=== PATIENT | male | born 1955 | race American Indian/Alaskan Native ===

== ENCOUNTER 2019-07-05 02:35 | Emergency (ER) | payer SELFPAY ==
[2019-07-05] MEDS ORDERED: PHENYLEPHRINE 1 MG, SODIUM CHLORIDE P/F VIAL 10 ML 9.9 ML IJ**NOT IV ONE (02:46)
--- NOTE | 2019-07-05 03:00 | Emergency Department Report ---
HPI - General Chief Complaint: Urogenital-Male Time Seen by Provider: 07/05/19 02:46 - HPI HPI: Room 1 The patient is a 64-year-old male presenting with a chief complaint priapism. The patient states he injected himself withpap/phen/pge (30mg/2mg/20mcg) this evening at 20:30. Patient states she's had an erection since. Patient has not taken any other medication Location: [See above] Duration: [See above] Quality: [See above] Severity: [See above] Timing: [See above] Context: [See above] Modifying factors: [See above] Associated signs and symptoms: [see above] ED Past Medical Hx - Past Medical History Previous Medical History?: No Hx of Cancer: Yes (prostate CA s/p surgery) - Surgical History Past Surgical History?: Yes Additional Surgical History: prostate - Family History Family history: no significant - Social History Smoking Status: Current Every Day Smoker (1/3 pack per day) Substance Use Type: None (denies illicit drug use) - Medications Home Medications: Home Medications Medication Instructions Recorded Confirmed Last Taken Type HYDROcodone/APAP 5-325 [[place] 1 - 2 each PO Q6HR PRN #10 tablet 07/05/19 Unknown Rx 5/325] Ibuprofen [Motrin 800 MG tab] 800 mg PO Q8HR PRN #20 tablet 07/05/19 Unknown Rx ED Review of Systems ROS: Stated complaint: POSS REACTION TO MEDICATION Other details as noted in HPI Constitutional: no symptoms reported Eyes: denies: eye pain ENT: denies: throat pain Respiratory: no symptoms reported Cardiovascular: denies: chest pain Endocrine: no symptoms reported Gastrointestinal: denies: abdominal pain Genitourinary: other (priapism) Musculoskeletal: denies: back pain Neurological: denies: headache Physical Exam - Physical Exam Vital Signs: Vital Signs 07/05/19 02:38 Temperature 98.1 F Pulse Rate 76 Respiratory 18 Rate Blood Pressure 150/93 O2 Sat by Pulse 98 Oximetry Physical Exam: GENERAL: The patient is well-developed well-nourished male sitting in a stret zac not appearing to be in acute distress HEENT: Normocephalic. Atraumatic. Extraocular motions are intact. Patient has moist mucous membranes. NECK: Supple. Trachea midline CHEST/LUNGS: Clear to auscultation. There is no respiratory distress noted. HEART/CARDIOVASCULAR: Regular. There is no tachycardia. There is no gallop rub or murmur. SKIN: There is no rash. There is no edema. There is no diaphoresis. NEURO: The patient is awake, alert, and oriented. The patient is cooperative. The patient has normal speech MUSCULOSKELETAL: There is no evidence of acute injury. ED Course Vital Signs 07/05/19 02:38 Temperature 98.1 F Pulse Rate 76 Respiratory 18 Rate Blood Pressure 150/93 O2 Sat by Pulse 98 Oximetry - Penile Procedure Consent Obtained: verbal consent Time Out Performed: Yes Indication: priapism management Procedural Sedation: No Sedation/Analgesia: none Local Anesthesia Used: Bupivicaine 0.25% Amount of Anesthesia Used (mls): 6 (piperocaine 0.25% mixed with lidocaine 1% plain in 1:1 ratio) Priapism Management: aspiration, phenylephrine injection (total 300 g phenylephrine use (1003)) Complications: none Patient Tolerated Procedure: well, no complications Additional Comments: Approximately 26 ml's blood aspirated ED Medical Decision Making - Differential Diagnosis priapism Critical care attestation.: If time is entered above; I have spent that time in minutes in the direct care of this critically ill patient, excluding procedure time. ED Disposition Clinical Impression: Priapism Disposition: DC- TO HOME OR SELFCARE Is pt being admited?: No Does the pt Need Aspirin: No Condition: Stable Instructions: Priapism (ED) Additional Instructions: Return to the emergency department should you develop worsening symptoms, inability to tolerate food or liquids, high fever or any other concerns Prescriptions: Ibuprofen [Motrin 800 MG tab] 800 mg PO Q8HR PRN #20 tablet PRN Reason: Pain, Moderate (4-6) HYDROcodone/APAP 5-325 [[place] 5/325] 1 - 2 each PO Q6HR PRN #10 tablet PRN Reason: Pain Referrals: your, urologist [Other] - 3-5 Days GOMEZ VINSON MD [Staff Physician] - 3-5 Days Time of Disposition: 03:52
[2019-07-05] MEDS ORDERED: LIDOCAINE (2%) 20 MG/1 ML VIAL 20 ML MDV INFILTRATI ONE (03:13)
[2019-07-05 03:14] VITALS: BP 153/88
[2019-07-05] MEDS ORDERED: BUPIVACAINE/PF (0.25%) 2.5 MG/ML 10 ML VIAL INFILTRATI ONE (03:14)
[2019-07-05] MEDS ORDERED: LIDOCAINE (1%) 10 MG/1 ML VIAL 20 ML MDV ONE (03:15)
[2019-07-05] MEDS ORDERED: LIDOCAINE (1%) 10 MG/1 ML VIAL 20 ML MDV INFILTRATI ONE (03:18)
[2019-07-05] MEDS ORDERED: BUPIVACAINE/PF (0.25%) 2.5 MG/ML 30 ML VIAL INFILTRATI ONE (03:18)
== END 2019-07-05 04:30 | disposition home or self-care (01) ==
LOC: ED 02:35
DX: N48.30 Priapism, unspecified (principal); Z88.0 Allergy status to penicillin
CPT/HCPCS: 54220; 99283; J2370

== ENCOUNTER 2019-11-27 10:22 | Emergency (ER) | payer SELFPAY ==
[2019-11-27 10:33] VITALS: BP 151/88
[2019-11-27 10:56] LABS: Bilirubin,Urine NEG (Negative); Blood,Urine NEG (Negative); Color,Urine Yellow (Yellow); Mucus,Urine FEW /HPF; Protein,Urine <15 mg/dL mg/dL (Negative); Urobilinogen,Urine < 2.0 mg/dL (<2.0)
--- NOTE | 2019-11-27 11:46 | Emergency Department Report ---
ED Male HPI - General Chief complaint: Urogenital-Male Stated complaint: BLOOD IN URINE,STOMACH PAIN, TINGLING IN HANDS Time Seen by Provider: 11/27/19 11:24 Source: patient Mode of arrival: Ambulatory Limitations: No Limitations - History of Present Illness Initial comments: 64 year old male presents to ED c/o hematuria and bilateral hands tingling. Both started 2 days ago. Patient states that the hematuria has been intermittent. He reports associated intermittent lower abd pain. He denies any associated dysuria, urinary frequency or urgency. He denies decrease urine out put and denies any back or flank pain. He denies any fever, chills, vomiting or bowel changes. He states he was dx with prostate CA in 2017 during which time he had a prost ectomy. He states he had radiation therapy for few months in 2018. Currently, he states his urologist is just monitoring his PSA. He states he had a CT scan back in August of last year which showed "some spots" and his urologist was suppose to contact him to do another "more intense" scan but he has not heard from them about an appointment. His Urologist is Dr Garcia. He states he did have blood in urine right after his surgery in 2016 but not since then until now. He states he is not on any anticoagulants or anti platelets. He also c/o tingling intermittent to bilateral hands and fingers. He states it tends to be more at night. He denies any injury. He admits that he does use his hands frequently. he denies any weakness, numbness, wrist pain, hand pain, shoulder pain or neck pain; he denies any headache, vision changes or any other neurological symptoms. He reports no chest pain or SOB. MD Complaint: other (Hematuria/Bilateral Hands tingling) -: days(s) (since wednesday) - Related Data Previous Rx's Medication Instructions Recorded Last Taken Type HYDROcodone/APAP 5-325 [[place] 1 - 2 each PO Q6HR PRN #10 tablet 07/05/19 Unknown Rx 5/325] Ibuprofen [Motrin 800 MG tab] 800 mg PO Q8HR PRN #20 tablet 07/05/19 Unknown Rx Gabapentin 300 mg PO QHS PRN #15 cap 11/27/19 Unknown Rx Sulfamethoxazole/Trimethoprim 1 each PO BID #14 tablet 11/27/19 Unknown Rx [Bactrim DS TAB] Allergies Allergy/AdvReac Type Severity Reaction Status Date / Time Penicillins Allergy Unknown Verified 07/05/19 02:40 ED Review of Systems ROS: Stated complaint: BLOOD IN URINE,STOMACH PAIN, TINGLING IN HANDS Other details as noted in HPI Constitutional: denies: chills, diaphoresis, fever, weakness Eyes: denies: eye pain, eye discharge, vision change Respiratory: denies: cough, orthopnea, shortness of breath, SOB with exertion, SOB at rest, stridor, wheezing Cardiovascular: denies: chest pain, palpitations, dyspnea on exertion, edema, syncope Gastrointestinal: abdominal pain. denies: nausea, vomiting, diarrhea, constipation, hematemesis, hematochezia Genitourinary: hematuria. denies: urgency, dysuria, frequency, discharge, testicular pain, testicular mass Musculoskeletal: denies: back pain Neurological: paresthesias. denies: headache, weakness, numbness, confusion, abnormal gait, vertigo Hematological/Lymphatic: denies: easy bleeding, easy bruising ED Past Medical Hx - Past Medical History Previous Medical History?: Yes Additional medical history: Prostate CA - Surgical History Additional Surgical History: Prostate - Social History Smoking Status: Current Every Day Smoker Substance Use Type: Marijuana - Medications Home Medications: Home Medications Medication Instructions Recorded Confirmed Last Taken Type HYDROcodone/APAP 5-325 [[place] 1 - 2 each PO Q6HR PRN #10 tablet 07/05/19 Unknown Rx 5/325] Ibuprofen [Motrin 800 MG tab] 800 mg PO Q8HR PRN #20 tablet 07/05/19 Unknown Rx Gabapentin 300 mg PO QHS PRN #15 cap 11/27/19 Unknown Rx Sulfamethoxazole/Trimethoprim 1 each PO BID #14 tablet 11/27/19 Unknown Rx [Bactrim DS TAB] ED Physical Exam - General Limitations: No Limitations General appearance: alert, in no apparent distress - Head Head exam: Present: atraumatic, normocephalic, normal inspection - Eye Eye exam: Present: normal appearance, PERRL, EOMI Pupils: Present: normal accommodation - ENT ENT exam: Present: normal exam, normal orophraynx - Neck Neck exam: Present: normal inspection, full ROM. Absent: tenderness, meningismus - Respiratory Respiratory exam: Present: normal lung sounds bilaterally - Cardiovascular Cardiovascular Exam: Present: regular rate - GI/Abdominal GI/Abdominal exam: Present: soft. Absent: distended, tenderness - Extremities Exam Extremities exam: Present: normal inspection, full ROM, other ( strength bilateral and fingers equal nl, sensation intact bilateral; neg tinel/phalens signs bilaterally) - Expanded Upper Extremity Exam Left General: Present: normal inspection, laceration Shoulder Exam: Present: normal inspection, full ROM. Absent: tenderness Upper Arm exam: Present: normal inspection, full ROM. Absent: tenderness Elbow exam: Present: normal inspection, full ROM. Absent: tenderness Forearm Wrist exam: Present: normal inspection, full ROM. Absent: tenderness Hand Wrist exam: Present: normal inspection. Absent: full ROM Right General: Present: normal inspection Shoulder Exam: Present: normal inspection, full ROM. Absent: tenderness Upper Arm exam: Present: normal inspection, full ROM. Absent: tenderness Elbow exam: Present: normal inspection, full ROM. Absent: tenderness Forearm Wrist exam: Present: normal inspection, full ROM. Absent: tenderness Hand Wrist exam: Present: normal inspection, full ROM. Absent: tenderness - Neurological Exam Neurological exam: Present: alert, oriented X3, CN II-XII intact, normal gait, motor sensory deficit - Skin Skin exam: Present: intact ED Course Vital Signs 11/27/19 10:28 Temperature 98.1 F Pulse Rate 75 Respiratory 18 Rate Blood Pressure 151/88 O2 Sat by Pulse 99 Oximetry ED Medical Decision Making - Lab Data Result diagrams: 11/27/19 12:25 11/27/19 12:25 - Radiology Data Radiology results: report reviewed Patient: ANDERA MURPHY MR#: [id number] : 1955 Acct:[id number] Age/Sex: 64 / M ADM Date: 11/27/19 Loc: ED Attending Dr: Ordering Physician: ELVIE ORDAZ Date of Service: 11/27/19 Procedure(s): CT abdomen pelvis wo con Accession Number(s): [id number] cc: ELVIE ORDAZ CT ABDOMEN AND PELVIS WITHOUT CONTRAST INDICATION / CLINICAL INFORMATION: MAIN: Hematuria/hx prostate CA LLQ PAIN . TECHNIQUE: Axial CT images were obtained through the abdomen and pelvis without IV contrast. All CT scans at this location are performed using CT dose reduction for ALARA by means of automated exposure control. COMPARISON: None available. FINDINGS: LOWER CHEST: No significant abnormality. Chronic pulmonary changes are present. LIVER: Multiple hepatic cyst are present GALLBLADDER: No significant abnormality. BILE DUCTS: No significant abnormality. PANCREAS: No significant abnormality. SPLEEN: No significant abnormality. ADRENALS: No significant abnormality. RIGHT KIDNEY and URETER: No significant abnormality. LEFT KIDNEY and URETER: A small cyst is present left kidney STOMACH and SMALL BOWEL: No significant abnormality. COLON: No significant abnormality. APPENDIX: Not identified PERITONEUM: Surgical changes present right lower quadrant No free fluid. No free air. No fluid collection. LYMPH NODES: No signif icant adenopathy. AORTA and ARTERIES: Calcified atherosclerotic plaque involving the abdominal aorta and iliac arteries IVC and VEINS: No significant abnormality. URINARY BLADDER: No significant abnormality. REPRODUCTIVE ORGANS: No significant abnormality. ADDITIONAL FINDINGS: None. SKELETAL SYSTEM: Degenerative changes lower lumbar spine present involving the facets IMPRESSION: 1. No significant abnormality. 2. Hepatic cyst 3. Left renal cyst Signer Name: Geoffrey Martinez MD Signed: 11/27/2019 12:32 PM Workstation Name: [id number] Transcribed By: JIMMIE Dictated By: Geoffrey Martinez MD Electronically Authenticated By: Geoffrey Martinez MD Signed Date/Time: 11/27/19 1232 DD/ 1225 TD/TT: - Medical Decision Making 64 year old male with pmhx of prostate CA dx in 2017, s/p prostectomy in 2017 and radiation tx in 2018 presents to ED c/o intermittent hematuria since this past wednesday. He reports associated abd pain but no other GI or smptoms. On exam patient is well-appearing, nontoxic, he has a soft nontender abdomen, appears well-hydrated and is in no acute distress. Urinalysis showed microscopic blood, but no gross blood, and no obvious signs of UTI but urine culture is pending. CT scan shows small left renal cyst and and a hepatic cyst but otherwise unremarkable. Remaining lab work CBC and CMP unremarkable. Discussed results with patient. Informed him I will still prescribe antiobitics just in case cystitis and urine culture positive. Recommend lots of water and following up with urologist this week. Patient was also complaining of tingling to bilateral hands which seem to be worse at night. No injury but he does admitted to repetitive hand use. He denies any tingling currently. He denies any associated numbness, weakness, chest pain, sob, neck pain, no shoulder pain, headache, vision changes or any ot her symptoms. Patient is awake, alert, oriented x3 with a normal gait and a normal neurological exam. Discussed with patient that his symptoms could be related to carpal tunnel. Very low suspicion for any intracranial abnormality/CVA/TIA or acute cardiopulmonary etiology at this time. Recommend w earing wrist splint at night and following up with [facility]. Patient stable and appropriate for d/c at this time. Critical care attestation.: If time is entered above; I have spent that time in minutes in the direct care of this critically ill patient, excluding procedure time. ED Disposition Clinical Impression: Hematuria, Cystitis, Paresthesia of hand, bilateral Disposition: DC- TO HOME OR SELFCARE Is pt being admited?: No Does the pt Need Aspirin: No Condition: Stable Instructions: Acute Hematuria (ED), Paresthesia (ED) Additional Instructions: Recommend following up with Your urologist this week for further evaluation especially if hematuria continues. Also recommend follow up with [facility] as the tingling in has could be related to Carpal tunnel. If your symptoms get worse return to ED. Prescriptions: Gabapentin 300 mg PO QHS PRN #15 cap PRN Reason: Tingling Sulfamethoxazole/Trimethoprim [Bactrim DS TAB] 1 each PO BID #14 tablet Referrals: PRIMARY CAREMD [Primary Care Provider] - 3-5 Days MARION HINES MD [Staff Physician] - 3-5 Days Time of Disposition: 13:56
--- NOTE | 2019-11-27 12:36 | Cat Scan Report ---
CT ABDOMEN AND PELVIS WITHOUT CONTRAST INDICATION / CLINICAL INFORMATION: MAIN: Hematuria/hx prostate CA LLQ PAIN . TECHNIQUE: Axial CT images were obtained through the abdomen and pelvis without IV contrast. All CT scans at [facility] location are performed using CT dose reduction for ALARA by means of automated exposure control. COMPARISON: None available. FINDINGS: LOWER CHEST: No significant abnormality. Chronic pulmonary changes are present. LIVER: Multiple hepatic cyst are present GALLBLADDER: No significant abnormality. BILE DUCTS: No significant abnormality. PANCREAS: No significant abnormality. SPLEEN: No significant abnormality. ADRENALS: No significant abnormality. RIGHT KIDNEY and URETER: No significant abnormality. LEFT KIDNEY and URETER: A small cyst is present left kidney STOMACH and SMALL BOWEL: No significant abnormality. COLON: No significant abnormality. APPENDIX: Not identified PERITONEUM: Surgical changes present right lower quadrant No free fluid. No free air. No fluid collection. LYMPH NODES: No significant adenopathy. AORTA and ARTERIES: Calcified atherosclerotic plaque involving the abdominal aorta and iliac arteries IVC and VEINS: No significant abnormality. URINARY BLADDER: No significant abnormality. REPRODUCTIVE ORGANS: No significant abnormality. ADDITIONAL FINDINGS: None. SKELETAL SYSTEM: Degenerative changes lower lumbar spine present involving the facets IMPRESSION: 1. No significant abnormality. 2. Hepatic cyst 3. Left renal cyst Signer Name: Geoffrey Martinez MD Signed: 11/27/2019 12:32 PM Workstation Name: [id number]
[2019-11-27 12:58] LABS: Basophils % (Auto) 0.4 % (0.0-1.8); Eosinophils # (Auto) 0.2 K/mm3 (0.0-0.4); Eosinophils % (Auto) 2.2 % (0.0-4.3); Hematocrit 45.5 % (35.5-45.6); Hemoglobin 15.2 gm/dl (11.8-15.2); Lymphocytes # (Auto) 2.1 K/mm3 (1.2-5.4); Lymphocytes % (Auto) 29.8 % (13.4-35.0); Mean Corpuscular HGB Conc 33 % (32-34); Mean Corpuscular Volume 94 fl (84-94); Monocytes # (Auto) 0.6 K/mm3 (0.0-0.8); Monocytes % (Auto) 8.9 % (0.0-7.3); Platelet Count 277 K/mm3 (140-440); Red Blood Count 4.83 M/mm3 (3.65-5.03); Red Cell Distribution Width 13.7 % (13.2-15.2)
[2019-11-27 13:21] LABS: Alanine Aminotransferase 29 units/L (7-56); Albumin 4.5 g/dL (3.9-5); BUN/Creatinine Ratio 15; Blood Urea Nitrogen 16 mg/dL (9-20); Calcium 9.8 mg/dL (8.4-10.2); Hemolysis Index 7
== END 2019-11-27 14:10 | disposition home or self-care (01) ==
LOC: ED 10:22
DX: N30.01 Acute cystitis with hematuria (principal); R20.2 Paresthesia of skin; F17.200 Nicotine dependence, unspecified, uncomplicated; F12.10 Cannabis abuse, uncomplicated; Z79.1 Long term (current) use of non-steroidal anti-inflammatories (NSAID); Z79.899 Other long term (current) drug therapy; Z88.0 Allergy status to penicillin
CPT/HCPCS: 36415; 74176; 80053; 81001; 85025; 87086

== ENCOUNTER 2020-01-15 08:48 | Emergency (ER) | payer SELFPAY ==
--- NOTE | 2020-01-15 09:19 | XRay Report ---
CHEST 2 VIEWS INDICATION: SOB, back pain. COMPARISON: None FINDINGS: Support devices: None. Heart: Within normal limits. Lungs/pleura: No acute air space or interstitial disease. No pneumothorax. Additional findings: Mild to moderate thoracic spondylosis is noted. No obvious fracture or bone lesi on. IMPRESSION: No acute findings. Signer Name: Christopher Matt Jr, MD Signed: 01/15/2020 9:15 AM Workstation Name: [id number]
[2020-01-15] MEDS ORDERED: KETOROLAC 60 MG/2 ML INJ IM ONE (09:43)
--- NOTE | 2020-01-15 09:51 | Emergency Department Report ---
ED Shortness of Breath HPI - General Chief Complaint: Dyspnea/Respdistress Stated Complaint: SOB, BACK PAIN Time Seen by Provider: 01/15/20 09:34 Source: patient Mode of arrival: Ambulatory Limitations: No Limitations - History of Present Illness Initial Comments: 64-year-old male with a remote history of prostate cancer status post prostatectomy 3 years ago and radiation treatment 3 years ago and tobacco use presents to the ER today complaining of shortness of breath and right intrascapular back pain. Patient states that his symptoms started about 3 weeks ago. He denies any particular injury or trauma. Patient states that the pain in his right intrascapular area feels sharp in nature, and has been constant but nonradiating. He states that the right intrascapular pain is not worse with deep breath. He states that the shortness of breath is worse when he lays down in bed, is not exertional. He reports a mild cough but he denies any associated chest pain, wheezing, URI symptoms, nausea, vomiting, abdominal pain, diaphoresis, calf pain or leg swelling. Other that one episode of hematuria last week which has since resolved he denies any UTI symptoms. He denies any fever or chills. He denies any heart disease or lung disease. He denies any history of PE or DVTs. MD Complaint: shortness of breath -: Gradual, week(s) (3 weeks ago) - Related Data Previous Rx's Medication Instructions Recorded Last Taken Type HYDROcodone/APAP 5-325 [[place] 1 - 2 each PO Q6HR PRN #10 tablet 07/05/19 Unknown Rx 5/325] Gabapentin 300 mg PO QHS PRN #15 cap 11/27/19 Unknown Rx Albuterol INH(or & Nicu Only) 2 puff IH QID PRN #8.5 gram 01/15/20 Unknown Rx [ProAir HFA Inhaler] Lidocaine [Lidocaine Pain Relief] 1 each TP DAILY #10 adh..patch 01/15/20 Unknown Rx Methocarbamol [Robaxin] 500 mg PO TID PRN #30 tablet 01/15/20 Unknown Rx predniSONE [Deltasone] 50 mg PO QDAY #5 tab 01/15/20 Unknown Rx Allergies Allergy/AdvReac Type Severity Reaction Status Date / Time Penicillins Allergy Unknown Verified 07/05/19 02:40 ED Review of Systems ROS: Stated complaint: SOB, BACK PAIN Other details as noted in HPI Constitutional: denies: chills, fever Eyes: denies: eye pain, eye discharge, vision change ENT: denies: ear pain, throat pain Respiratory: cough, shortness of breath, SOB at rest (when laying down). denies: SOB with exertion, stridor, wheezing Cardiovascular: denies: chest pain, palpitations, dyspnea on exertion, edema, syncope, paroxysmal nocturnal dyspnea Gastrointestinal: denies: abdominal pain, nausea, vomiting, diarrhea, constipation, hematemesis, hematochezia Genitourinary: hematuria. denies: urgency, dysuria, frequency, discharge Musculoskeletal: back pain Skin: denies: rash, lesions Neurological: denies: headache, weakness, paresthesias Psychiatric: denies: anxiety, depression ED Past Medical Hx - Past Medical History Previous Medical History?: Yes Additional medical history: Prostate CA - Surgical History Past Surgical History?: No Additional Surgical History: Prostate - Social History Smoking Status: Never Smoker Substance Use Type: Marijuana - Medications Home Medications: Home Medications Medication Instructions Recorded Confirmed Last Taken Type HYDROcodone/APAP 5-325 [[place] 1 - 2 each PO Q6HR PRN #10 tablet 07/05/19 Unknown Rx 5/325] Gabapentin 300 mg PO QHS PRN #15 cap 11/27/19 Unknown Rx Albuterol INH(or & Nicu Only) 2 puff IH QID PRN #8.5 gram 01/15/20 Unknown Rx [ProAir HFA Inhaler] Lidocaine [Lidocaine Pain Relief] 1 each TP DAILY #10 adh..patch 01/15/20 Unknown Rx Methocarbamol [Robaxin] 500 mg PO TID PRN #30 tablet 01/15/20 Unknown Rx predniSONE [Deltasone] 50 mg PO QDAY #5 tab 01/15/20 Unknown Rx ED Physical Exam - General Limitations: No Limitations General appearance: alert, in no apparent distress - Head Head exam: Present: atraumatic, normocephalic, normal inspection - Eye Eye exam: Present: normal appearance, PERRL, EOMI Pupils: Present: normal accommodation - Neck Neck exam: Present: full ROM - Respiratory Respiratory exam: Present: normal lung sounds bilaterally. Absent: respiratory distress, wheezes, chest wall tenderness - Cardiovascular Cardiovascular Exam: Present: regular rate, normal rhythm, normal heart sounds - GI/Abdominal GI/Abdominal exam: Present: soft. Absent: distended, tenderness - Extremities Exam Extremities exam: Present: normal inspection. Absent: pedal edema, calf tenderness - Back Exam Back exam: Present: normal inspection, full ROM, muscle spasm (right interscapular area), paraspinal tenderness (right interscapular area). Absent: CVA tenderness (R), vertebral tenderness, rash noted - Neurological Exam Neurological exam: Present: alert, oriented X3, CN II-XII intact, normal gait - Psychiatric Psychiatric exam: Present: normal affect, normal mood - Skin Skin exam: Present: intact ED Course Vital Signs 01/15/20 08:54 Temperature 98.4 F Pulse Rate 72 Respiratory 18 Rate Blood Pressure 165/87 O2 Sat by Pulse 98 Oximetry ED Medical Decision Making - Lab Data Result diagrams: 01/15/20 10:07 01/15/20 10:07 - Radiology Data Radiology results: report reviewed - Medical Decision Making Patient presented to the ER today complaining of right interscapular pain and shortness of breath. Onset 3 weeks ago. Other than past history of prostate cancer which was diagnosed 3 years ago and tobacco use he has no other significant past medical history. Patient was well-appearing, nontoxic and not in any acute pain or respiratory distress. Patient was actually on his phone when I walked in the room. Patient was noted to be ambulatory in the ER without any signs of respiratory distress. His vital signs were all within normal limits. Patient was unable to be located upon discharge. I was unable to review results with him and discuss suspected dx and treatment plan. Patient also Eloped prior to getting EKG. Patient Eloped without notifying myslef nor nurse. Critical care attestation.: If time is entered above; I have spent that time in minutes in the direct care of this critically ill patient, excluding procedure time. ED Disposition Clinical Impression: Spasm of thoracic back muscle, Bronchospasm Disposition: ELOPED Is pt being admited?: No Does the pt Need Aspirin: No Condition: Stable Instructions: Bronchospasm (ED), Muscle Spasm (ED) Additional Instructions: Take medications as prescribed. I recommend close follow up with PCP. Return to ED if worse. Prescriptions: predniSONE [Deltasone] 50 mg PO QDAY #5 tab Lidocaine [Lidocaine Pain Relief] 1 each TP DAILY #10 adh..patch Albuterol INH(or & Nicu Only) [ProAir HFA Inhaler] 2 puff IH QID PRN #8.5 gram PRN Reason: Shortness Of Breath Methocarbamol [Robaxin] 500 mg PO TID PRN #30 tablet PRN Reason: PAIN Referrals: PRIMARY CARE, [Primary Care Provider] - 3-5 Days Time of Disposition: 11:10
[2020-01-15 10:21] LABS: Basophils % (Auto) 0.4 % (0.0-1.8); Eosinophils # (Auto) 0.2 K/mm3 (0.0-0.4); Eosinophils % (Auto) 2.1 % (0.0-4.3); Hematocrit 43.9 % (35.5-45.6); Hemoglobin 14.7 gm/dl (11.8-15.2); Mean Corpuscular HGB Conc 34 % (32-34); Mean Corpuscular Volume 95 fl (84-94); Monocytes # (Auto) 0.9 K/mm3 (0.0-0.8); Monocytes % (Auto) 10.9 % (0.0-7.3); Platelet Count 244 K/mm3 (140-440); Red Blood Count 4.63 M/mm3 (3.65-5.03); Red Cell Distribution Width 14.2 % (13.2-15.2)
[2020-01-15 10:47] LABS: Alanine Aminotransferase 39 units/L (7-56); Albumin 4.4 g/dL (3.9-5); BUN/Creatinine Ratio 12; Blood Urea Nitrogen 12 mg/dL (9-20); Calcium 9.3 mg/dL (8.4-10.2); Hemolysis Index 9
[2020-01-16 13:14] VITALS: BP 165/87
== END 2020-01-15 11:00 | disposition left against medical advice (07) ==
LOC: ED 08:48
DX: J98.01 Acute bronchospasm (principal); M62.830 Muscle spasm of back; F12.10 Cannabis abuse, uncomplicated; Z98.890 Other specified postprocedural states; Z79.899 Other long term (current) drug therapy; Z88.0 Allergy status to penicillin
CPT/HCPCS: 36415; 71046; 80053; 83880; 84484; 85025; 85379; 96372; 99283; J1885